=== PATIENT | male | born 1950 | race Caucasian/White ===

== ENCOUNTER 2018-10-05 06:22 | Day surgery (SDC) | payer MEDICARE ==
[~2018-10-05] VITALS: Ht 175.3 cm; Wt 94.3 kg
[2018-10-05 06:53] VITALS: BP 110/62
--- NOTE | 2018-10-05 08:45 | NUR ---
resting comfortably ,spouse at bedside ,callbell in reach
[2018-10-05] MEDS ORDERED: SODIUM CHLORIDE 0.9% 1000ML 1,000 ML IV ONE (08:48)
[2018-10-05 11:40] VITALS: BP 141/80
[2018-10-05 12:15] VITALS: BP 133/74
== END 2018-10-05 13:35 | disposition home or self-care (01) ==
LOC: DAH 06:22 → EDSTATUS 08:00 → DAH 13:35
PROVIDERS: ATTEND Internal Medicine
DX: R10.9 Unspecified abdominal pain (principal); Z98.890 Other specified postprocedural states; K57.30 Diverticulosis of large intestine without perforation or abscess without bleeding; Z79.899 Other long term (current) drug therapy; Z79.84 Long term (current) use of oral hypoglycemic drugs
CPT/HCPCS: 74178; A4606; J7030; 96360; 96361

== ENCOUNTER → 2020-08-15 | Outpatient (CLI) | payer MEDICARE ==
[~2020-08-15] MED LIST: IOHEXOL-350 50ML VIAL IV ONE
== END | disposition home or self-care (01) ==
LOC: RAH 10:08
PROVIDERS: ATTEND Internal Medicine
DX: N20.0 Calculus of kidney (principal); N13.30 Unspecified hydronephrosis; N13.4 Hydroureter
CPT/HCPCS: 74178; Q9967

== ENCOUNTER 2021-10-14 07:00 | Day surgery (SDC) | payer MEDICARE ==
[~2021-10-14] VITALS: Ht 175.3 cm; Wt 99.8 kg
[2021-10-14] VITALS (7 sets, daily range): BP systolic 100–141; BP diastolic 48–88
[~2021-10-14 07:00] MED LIST changes: +0.9%NACL 1000ML 1,000 ML IV ONE; -IOHEXOL-350 50ML VIAL IV ONE
[2021-10-14] MEDS ORDERED: FELO10TA46 PO (08:10)
[2021-10-14] MEDS ORDERED: FENO150C4 PO (08:10)
[2021-10-14] MEDS ORDERED: METO50TA18 PO (08:10)
[2021-10-14] MEDS ORDERED: FLEC150T2 PO (08:10)
[2021-10-14] MEDS ORDERED: ROSU20TA31 PO (08:10)
[2021-10-14] MEDS ORDERED: OMEP40CA21 PO (08:10)
[2021-10-14] MEDS ORDERED: ESCI-8 PO (08:10)
[2021-10-14] MEDS ORDERED: PROPOFOL 10 MG/ML 20ML VIAL IV ONE ×2 (10:35→10:58)
== END 2021-10-14 11:30 | disposition home or self-care (01) ==
LOC: ENDO 07:00 → DAH 07:00 → ENDO 11:30
PROVIDERS: ATTEND Internal Medicine
DX: R93.3 Abnormal findings on diagnostic imaging of other parts of digestive tract (principal); K86.1 Other chronic pancreatitis; K86.89 Other specified diseases of pancreas; K31.89 Other diseases of stomach and duodenum; E78.5 Hyperlipidemia, unspecified; I10 Essential (primary) hypertension; K21.9 Gastro-esophageal reflux disease without esophagitis; E11.9 Type 2 diabetes mellitus without complications; Z88.0 Allergy status to penicillin; Z88.8 Allergy status to other drugs, medicaments and biological substances; Z85.46 Personal history of malignant neoplasm of prostate; Z90.49 Acquired absence of other specified parts of digestive tract; Z98.890 Other specified postprocedural states; Z20.822 Contact with and (suspected) exposure to COVID-19; Z79.899 Other long term (current) drug therapy; Z87.891 Personal history of nicotine dependence; Z72.89 Other problems related to lifestyle
CPT/HCPCS: 43238; 82948; 87635; 88173; 88305; 88341; 88342; A4215 ×3; A4221; A4222; A4223; A4606; A4620; A4663; C9803; J2704; J7030

== ENCOUNTER → 2022-11-05 | Outpatient (CLI) | payer MEDICARE ==
[~2022-11-05] MED LIST changes: -0.9%NACL 1000ML 1,000 ML IV ONE; +ESCI-8 PO; +FELO10TA46 PO; +FENO150C4 PO; +FLEC150T2 PO; +METO50TA18 PO; +OMEP40CA21 PO; +ROSU20TA31 PO
== END | disposition home or self-care (01) ==
LOC: SHCH 11:01
PROVIDERS: ATTEND Internal Medicine Cardiovascular Disease
DX: I49.5 Sick sinus syndrome (principal)
CPT/HCPCS: 93306

== ENCOUNTER → 2022-11-09 | Outpatient (CLI) | payer MEDICARE ==
[2022-11-09 12:20] LABS: ALBUMIN 3.5 g/dL (3.5-5.0); CREATININE 1.5 mg/dL (0.5-1.5); POTASSIUM 4.5 mmol/L (3.5-5.1); TOTAL PROTEIN, SERUM 7.4 g/dL (6.0-8.3)
== END | disposition home or self-care (01) ==
LOC: LAB 10:26
PROVIDERS: ATTEND Internal Medicine Cardiovascular Disease
DX: R06.09 Other forms of dyspnea (principal); E78.2 Mixed hyperlipidemia
CPT/HCPCS: 36415; 80053; 80061

== ENCOUNTER → 2023-11-01 | Outpatient (CLI) | payer MEDICARE ==
[~2023-11-01] MED LIST changes: +COLE1TAB2 PO; +EMPA10TA PO; +FELO5TAB48 PO; +FENO145T26 PO; +FLEC100T3 PO; +GABA600T10 PO; +LATA2.5D14 OP; +LOPE2CAP PO; +MAGN400T53 PO; +METO-391 PO; +METO-409 PO; +OMEG100033 PO; -ROSU20TA31 PO; +ROSU20TA73 PO
== END | disposition home or self-care (01) ==
LOC: RAH 09:12
PROVIDERS: ATTEND Urology
DX: N20.0 Calculus of kidney (principal); M47.815 Spondylosis without myelopathy or radiculopathy, thoracolumbar region
CPT/HCPCS: 74018; 76100

== ENCOUNTER → 2023-12-18 | Outpatient (CLI) | payer MEDICARE ==
[~2023-12-18] MED LIST changes: -ESCI-8 PO; -FELO10TA46 PO; -FENO150C4 PO; -FLEC150T2 PO; -METO50TA18 PO
== END | disposition home or self-care (01) ==
LOC: SHCH 09:56
PROVIDERS: ATTEND Internal Medicine Cardiovascular Disease
DX: I45.9 Conduction disorder, unspecified (principal); Z95.0 Presence of cardiac pacemaker
CPT/HCPCS: 93306

== ENCOUNTER 2025-01-18 08:54 | Day surgery (SDC) | payer MEDICARE ==
[2025-01-16 10:51] VITALS: BP 106/58; PULSE 73; RESP 14; TEMP 97.2
[2025-01-16 10:57] LABS: BASOPHILS # (AUTO) 0.07 K/uL (0.00-0.20); BASOPHILS % (AUTO) 1.1 % (0.0-5.0); EOSINOPHILS # (AUTO) 0.15 K/uL (0.00-0.70); EOSINOPHILS % (AUTO) 2.4 % (0.0-8.0); HEMATOCRIT 44.4 % (42-54); IMMATURE GRANULOCYTE ABSOLUTE 0.01 K/uL (0-1); LYMPHOCYTES # (AUTO) 2.3 K/uL (1.0-4.8); LYMPHOCYTES % (AUTO) 36.9 % (21.0-51.0); MEAN CORPUSCULAR HEMOGLOBIN 31.2 pg (27.0-33.0); MEAN CORPUSCULAR VOLUME 97.6 fL (79-99); MONOCYTES # (AUTO) 0.6 K/uL (0.1-1.0); MONOCYTES % (AUTO) 9.9 % (3.0-13.0); NEUTROPHILS # (AUTO) 3.1 K/uL (1.8-7.7); NEUTROPHILS % (AUTO) 49.5 % (40.0-77.0); PLATELET COUNT (AUTO) 265 K/uL (130-400); RED BLOOD CELL COUNT(AUTO) 4.55 MIL/uL (4.50-6.20); RED CELL DISTRIBUTION WIDTH 14.8 % (11.0-15.5); WHITE BLOOD COUNT (AUTO) 6.2 K/uL (4.8-10.8)
[2025-01-16 11:05] LABS: CREATININE 1.8 mg/dL (0.5-1.3)
--- NOTE | 2025-01-16 11:19 | EKG ---
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
[2025-01-16 11:33] LABS: APPEARANCE,URINE CLEAR (CLEAR); BILIRUBIN,URINE NEGATIVE (NEGATIVE); COLOR,URINE LIGHT-YELLOW (YELLOW); GLUCOSE, URINE (UA) >=1000 mg/dL (NEGATIVE); KETONES,URINE NEGATIVE (NEGATIVE); LEUKOCYTE ESTERASE ,URINE NEGATIVE Leu/uL (NEGATIVE); NITRATE,URINE NEGATIVE (NEGATIVE); OCCULT BLOOD,URINE NEGATIVE (NEGATIVE); PH,URINE 5.5 (5.0-8.0); PROTEIN,URINE NEGATIVE (NEGATIVE); UROBILINOGEN,URINE 0.2 mg/dL (0.2-1.0)
[2025-01-16 11:34] LABS: ADD UA MICROSCOPIC YES
[2025-01-16 11:38] LABS: INR 1.02 (0.85-1.15); PROTHROMBIN TIME 10.8 SEC (9.6-11.6)
[2025-01-16 11:39] LABS: PARTIAL THROMBOPLASTIN TIME 23.5 SEC (26.3-35.5)
[2025-01-16 11:47] LABS: RBC,URINE 0-1 /HPF (0-1); SQUAMOUS EPITHELIAL CELL,UR RARE /HPF (0-2)
--- NOTE | 2025-01-16 11:47 | HMCIMG ---
PORTABLE CHEST RADIOGRAPH INDICATION: PRE OP COMPARISON: None FINDINGS: Left sided dual chamber pacer and continuous leads remain in customary position. Heart size is normal. The pulmonary vascularity and chris appear normal. No abnormal pulmonary parenchymal opacity or consolidation identified. No significant pleural effusion noted. No pneumothorax detected. IMPRESSION: No radiographic evidence for any acute cardiopulmonary process.
[2025-01-16 11:54] LABS: B-TYPE NATRIURETIC PEPTIDE 89 pg/mL (0-100)
--- NOTE | 2025-01-17 16:40 | NUR ---
RE: LABS REPORTED BMP RESULTS TO ELDER FISHMAN NP. RECEIVED ORDERS TO INFORM DR HAGEN IN AM OF LABS.
[2025-01-18] VITALS (9 sets, daily range): BP systolic 104–129; BP diastolic 55–67; PULSE 60–73; RESP 16–18; TEMP 97.5–98
[~2025-01-18] VITALS: Ht 170.2 cm; Wt 88.7 kg
[~2025-01-18 08:54] MED LIST changes: +ASPI-1443 PO; +CYAN-106 PO; +DARO300T PO; +ERGO500093 PO; -FELO5TAB48 PO; +GABA-1405 PO; -GABA600T10 PO; -LATA2.5D14 OP; +LEVO15TA5 PO; +LISI2.5T13 PO; +LORA10TA7 PO; -METO-409 PO; -ROSU20TA73 PO; +ROSU20TA98 PO
--- NOTE | 2025-01-18 10:30 | NUR ---
DR. HAGEN WAS MADE AWARE OF RENAL FUNCTION. T/O FOR NS AT 100ML/HR STATES WILL USE LIMITED CONTRAST ON PT FOR PROCEDURE.
[2025-01-18] MEDS: 0.9%NACL 1000ML 1,000 ML IV SCH (10:53)
[2025-01-18] MEDS ORDERED: LIDOCAINE HCL 400MG/20ML VIAL ONE (14:52)
[2025-01-18] MEDS ORDERED: IOHEXOL 350 MG/ML 100ML INFUS..BTL IV ONE (14:52)
[2025-01-18] MEDS ORDERED: NITROGLYCERIN 50MG VIAL ONE (14:53)
[2025-01-18] MEDS ORDERED: HEParin-NS 1,000 UNIT/500 ML 1,000 ML IV ONE (14:53)
[2025-01-18] MEDS ORDERED: MIDAZOLAM HCL 1 MG/ML 2ML VIAL ONE (15:31)
[2025-01-18] MEDS ORDERED: FENTanyl CITRate PF 50 MCG/1 ML 2ML VIAL ONE (15:31)
[2025-01-18] MEDS ORDERED: DEXTROSE 50%-WATER 50 ML DISP.SYRIN IV PRN (16:00)
[2025-01-18] MEDS ORDERED: INSULIN humuLIN R 100 UNIT/ML 3ML SQ SCH (16:30)
--- NOTE | 2025-01-18 16:30 | PRN ---
DATE OF PROCEDURE: 01/18/2025 PROCEDURE PERFORMED: LEFT HEART CATHETERIZATION, LEFT AND RIGHT SELECTIVE CORONARY ANGIOGRAM, CONSCIOUS SEDATION, AND PERCLOSE SUTURE CLOSURE OF THE RIGHT COMMON FEMORAL ARTERY SEGREGATOR: Higinio Hagen MD, [facility] INDICATION: Decline in ejection fraction, moderate cardiomyopathy with LVEF of 35-39%, paradoxic septal motion on 2D echo secondary to RV pacing, 80% RV pacing on interrogation of pacemaker. PROCEDURE NOTE: After informed consent was obtained the patient was prepped and draped in the usual sterile fashion. A 6 Cypriot arterial sheath was inserted in the right femoral artery using a micropuncture technique with ultrasound guidance with a front wall, first pass puncture. This was performed after fluoroscopic ident ification of bony landmarks to facilitate a more accurate puncture of the right common femoral artery. The arterial sheath was aspirated and flushed. A 6 Cypriot pigtail catheter was then advanced over a J-tipped guidewire to the ascending aorta and was prolapsed into the left ventricle. The catheter was aspirated and flushed and pressure measurements were obtained. A left ventr iculogram was deferred due to the presence of chronic renal insufficiency. A pullback procedure was then performed, and this catheter was removed over a J- tipped guidewire. A 6F JL-4 was then advanced to the ascending aorta over a J-tipped guidewire, was aspirated and flushed, and was used for selective left coronary angiograms in multiple obliquities. A 6F JR-4 was advanced in a similar fashion to the ascending aorta over a J-tipped guidewire and was used for selective right coronary angiograms in multiple obliquities with findings as outlined below. A Perclose suture closure and the Perclose device was deployed in standard [facility] ion. Perclose suture closure was successful without bleeding or hematoma. The patient tolerated the procedure well and was returned to the holding area in stable condition. FINDINGS: LEFT HEART HEMODYNAMICS: The LVEDP was 13 mm of mercury. No LV-gram was performed due to the presence of chronic renal insufficiency. LEFT VENTRICULOGRAM: No LV-gram was performed due to the presence of chronic renal insufficiency. CORONARY ANGIOGRAM: LEFT MAIN: The left main coronary artery was normal. LEFT ANTERIOR DESCENDING: The LAD had a 30% mid stenosis and a 20% tandem longer mid stenosis. The proximal and the distal LAD were normal. The diagonal one had a 30% ostial stenosis. LEFT CIRCUMFLEX: The left circumflex was nondominant and small. There was a 40% mid left circumflex stenosis and a 30% OM1 stenosis in a small obtuse marginal branch. RAMUS INTERMEDIATE BRANCH: There was a large ramus intermediate branch which was normal. RIGHT CORONARY ARTERY: The right coronary artery was normal in its proximal, mid, and distal thirds. The posterolateral segment leading into the posterolateral branch had a 30% stenosis with a normal posterolateral branch. The PDA was normal as well. IMPRESSION: Cardiomyopathy due to RV pacing. RV pacing was demonstrated on 2D echo with paradoxic septal motion and there was 80% RV pacing noted on pacemaker interrogation. LVEF 35-39% by 2D echo 12/27/2024. Nonobstructive coronary artery disease with 30% mid LAD stenosis, 30% diagonal one stenosis, 40% mid left circumflex stenosis, 30% OM1 stenosis, and 30% stenosis in the posterolateral segment of the distal RCA. RECOMMENDATION: Aggressive risk factor modification. Expeditious referral for biventricular pacemaker upgrade. Statin therapy to LDL less than 55. COMPLICATIONS OF PROCEDURE: None, the patient tolerated the procedure well and was returned to his room in stable condition. HEMOSTASIS: Perclose suture closure was successful without bleeding or hematoma. ESTIMATED BLOOD LOSS: Less than 10 mL. CONTRAST TOTAL: 50 mL. HIGINIO HAGEN MD Jan 18, 2025 16:30
== END 2025-01-18 19:12 | disposition home or self-care (01) ==
LOC: DAH 08:54
PROVIDERS: ATTEND Internal Medicine Cardiovascular Disease
DX: I42.8 Other cardiomyopathies (principal); I25.5 Ischemic cardiomyopathy; I25.10 Atherosclerotic heart disease of native coronary artery without angina pectoris; I11.0 Hypertensive heart disease with heart failure; I50.22 Chronic systolic (congestive) heart failure; E78.2 Mixed hyperlipidemia; F17.290 Nicotine dependence, other tobacco product, uncomplicated; Z88.1 Allergy status to other antibiotic agents; Z88.8 Allergy status to other drugs, medicaments and biological substances; Z95.0 Presence of cardiac pacemaker; Z90.89 Acquired absence of other organs; Z98.890 Other specified postprocedural states; Z79.82 Long term (current) use of aspirin; Z79.899 Other long term (current) drug therapy
CPT/HCPCS: 80048; 83880; 85025; 85610; 85730; 81001; 36415; 71045; 93005; 93458; C1894 ×2; C1760; J3010; J3490 ×2; J7030; J2250; J1644; Q9967; A4215; A4222; A4221; A4663; A4216; A4606; Q9965; A4223 ×3; 99156; 99157

== ENCOUNTER → 2025-02-20 | Outpatient (CLI) | payer MEDICARE ==
[~2025-02-20] VITALS: Ht 170.2 cm; Wt 84.9 kg
[~2025-02-20] MED LIST changes: +EMPA25TA PO; +LATA2.5D14 OU; +RELU120T PO; +ROSU5TAB51 PO
[2025-02-20 14:49] LABS: BASOPHILS # (AUTO) 0.07 K/uL (0.00-0.20); BASOPHILS % (AUTO) 0.9 % (0.0-5.0); EOSINOPHILS # (AUTO) 0.14 K/uL (0.00-0.70); EOSINOPHILS % (AUTO) 1.8 % (0.0-8.0); HEMATOCRIT 41.9 % (42-54); IMMATURE GRANULOCYTE ABSOLUTE 0.02 K/uL (0-1); LYMPHOCYTES # (AUTO) 3.6 K/uL (1.0-4.8); LYMPHOCYTES % (AUTO) 45.4 % (21.0-51.0); MEAN CORPUSCULAR HGB CONC 33.2 g/dL (32.0-36.0); MEAN CORPUSCULAR VOLUME 96.3 fL (79-99); MONOCYTES # (AUTO) 0.6 K/uL (0.1-1.0); NEUTROPHILS # (AUTO) 3.4 K/uL (1.8-7.7); NEUTROPHILS % (AUTO) 43.6 % (40.0-77.0); PLATELET COUNT (AUTO) 276 K/uL (130-400); RED BLOOD CELL COUNT(AUTO) 4.35 MIL/uL (4.50-6.20); WHITE BLOOD COUNT (AUTO) 7.9 K/uL (4.8-10.8)
[2025-02-20 14:56] VITALS: BP 105/65; PULSE 87; RESP 18; TEMP 97.3
[2025-02-20 15:00] LABS: INR 1.01 (0.85-1.15); PROTHROMBIN TIME 10.7 SEC (9.6-11.6)
[2025-02-20 15:01] LABS: PARTIAL THROMBOPLASTIN TIME 23.8 SEC (26.3-35.5)
[2025-02-20 15:04] LABS: CREATININE 1.6 mg/dL (0.5-1.3); POTASSIUM 4.8 mmol/L (3.5-5.1)
--- NOTE | 2025-02-20 19:52 | EKG ---
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
== END | disposition home or self-care (01) ==
LOC: EDSTATUS 14:00 → DAH 14:20
PROVIDERS: ATTEND Internal Medicine Cardiovascular Disease
DX: Z01.818 Encounter for other preprocedural examination (principal); R94.31 Abnormal electrocardiogram [ECG] [EKG]; I50.22 Chronic systolic (congestive) heart failure; I47.10 Supraventricular tachycardia, unspecified
CPT/HCPCS: 36415; 80048; 85025; 85610; 85730; 93005